=== PATIENT | female | born 1940 | race Asian ===

== ENCOUNTER 2019-04-04 07:41 | Day surgery (SDC) | payer MEDICARE, OTHER ==
[~2019-04-04] VITALS: Ht 152.4 cm; Wt 55.8 kg
[2019-04-04 08:21] VITALS: BP 129/54
[2019-04-04 12:38] VITALS: BP 117/66
== END 2019-04-04 10:45 | disposition home or self-care (01) ==
LOC: DS 07:41 → EDSEX 08:30 → GI 08:30 → OR 08:30 → DS 10:45
DX: K62.5 Hemorrhage of anus and rectum (principal); D12.2 Benign neoplasm of ascending colon; K57.30 Diverticulosis of large intestine without perforation or abscess without bleeding; K64.0 First degree hemorrhoids; I10 Essential (primary) hypertension; E11.9 Type 2 diabetes mellitus without complications; E78.5 Hyperlipidemia, unspecified; F17.210 Nicotine dependence, cigarettes, uncomplicated; Z98.890 Other specified postprocedural states; Z79.84 Long term (current) use of oral hypoglycemic drugs; Z79.899 Other long term (current) drug therapy
CPT/HCPCS: 45378; 82962; J1200; J1610; J2250; J2310; J3010; J3490